=== PATIENT | female | born 2000 | race Caucasian/White ===

== ENCOUNTER 2025-03-21 19:56 | Inpatient (IN) | payer OTHER ==
[2025-03-21 20:54] LABS: PLATELET COUNT, AUTOMATED 296 10^3/uL (150-450)
[2025-03-21 21:16] LABS: AMPHETAMINES LEVEL URINE NEGATIVE (NEGATIVE); BARBITURATES URINE NEGATIVE (NEGATIVE); BENZODIAZEPINES URINE NEGATIVE (NEGATIVE); CANNABINOIDS URINE NEGATIVE (NEGATIVE); COCAINE METABOLITE URINE NEGATIVE (NEGATIVE); METHADONE URINE NEGATIVE (NEGATIVE); OPIATES URINE NEGATIVE (NEGATIVE); PHENCYCLIDINE URINE NEGATIVE (NEGATIVE)
[2025-03-21 21:19] LABS: ETHYL ALCOHOL (ETHANOL) < 0.003 % (0.000-0.010)
[2025-03-21 21:20] LABS: ALT/SGPT 16 U/L (7.0-40); AST/SGOT 16 U/L (<34); CALCIUM LEVEL 9.5 MG/DL (8.5-10.1); CARBON DIOXIDE LEVEL 25 MMOL/L (20-31); CHLORIDE LEVEL 109 MMOL/L (98-107); CREATININE FOR GFR 0.81 MG/DL (0.55-1.30); GLOMERULAR FILTRATION RATE > 90.0 (>60); POTASSIUM SERUM 4.1 MMOL/L (3.5-5.1); SALICYLATE LEVEL < 3.0 MG/DL (<30); SODIUM LEVEL 144 MMOL/L (136-145)
[2025-03-21] MEDS ORDERED: traZODone 50 MG TAB PO PRN (21:55)
[2025-03-21] MEDS ORDERED: MAALOX 30 ML SUSP *UDC PO PRN (21:55)
[2025-03-21] MEDS ORDERED: MOM 30 ML SUSPENSION UDC PO PRN (21:55)
[2025-03-21] MEDS ORDERED: ACETAMINOPHEN 325 MG TAB PO PRN (21:55)
[2025-03-21] MEDS ORDERED: IBUPROFEN 400 MG TAB PO PRN (21:55)
[2025-03-21] MEDS ORDERED: EXCETAB32 PO (23:08)
[2025-03-21] MEDS ORDERED: MELA5TAB44 PO (23:08)
[2025-03-21] MEDS ORDERED: GUMMCHW PO (23:08)
[2025-03-21] MEDS ORDERED: HOME MED LIST COMPLETE! XX SCH (23:10)
[2025-03-21 23:55] VITALS: BP 129/69; TEMP 96.3; O2SAT 98
[2025-03-22] MEDS: OLANZapine ORAL DISINTEGRATING TAB 5MG PO ONE (11:09)
[2025-03-22] MEDS: ESCITALOPRAM OXALATE 10 MG TABLET PO SCH (11:10)
[2025-03-22 15:14] VITALS: BP 131/62; TEMP 97.1; O2SAT 100
[2025-03-23 06:37] VITALS: BP 127/74; TEMP 97.6; O2SAT 99
[2025-03-23] MEDS ORDERED: LEXA1TAB PO (08:29)
[2025-03-23] MEDS ORDERED: TRAZ-252 PO (08:29)
== END 2025-03-23 12:25 | disposition home or self-care (01) | DRG 885 ==
LOC: M ED 19:56 → M ED INP 21:53 → M PSY 23:48
PROVIDERS: ADMIT Psychiatry & Neurology Neurology; ATTEND Psychiatry & Neurology Neurology
DX: F29 Unspecified psychosis not due to a substance or known physiological condition (principal); R45.851 Suicidal ideations; F41.9 Anxiety disorder, unspecified; F10.10 Alcohol abuse, uncomplicated; G47.00 Insomnia, unspecified